=== PATIENT | male | born 1965 | race Caucasian/White ===

== ENCOUNTER 2016-11-10 12:22 | Emergency (ER) ==
[2016-11-10 13:16] LABS: MANUAL DIFF NEEDED? NO
[2016-11-10 13:20] LABS: EOS# 0.06 X1000 (0.0-0.7); EOS% 0.4 % (0.0-10.0); HEMATOCRIT 44.9 % (42.0-52.0); HEMOGLOBIN 15.8 g/dL (14.0-18.0); IMM GRAN# 0.03 X1000 (0.0-0.04); IMM GRAN% 0.2 % (0.0-0.5); LYMPH# 2.55 X1000 (1.2-3.4); LYMPH% 18.7 % (20.5-51.1); MCH 32.7 PG (27-31); MCHC 35.2 g/dL (33-37); MONO# 1.28 X1000 (0.11-0.59); MONO% 9.4 % (1.7-9.3); MPV 10.4 FL (7.4-10.4); NEUT% 71.3 % (42.2-75.2); PLT 231 X1000 (130-400); RBC 4.83 XMIL (4.7-6.1)
[2016-11-10] MEDS ORDERED: TORADOL IV ONE (13:20)
[2016-11-10 13:39] LABS: URINE CULTURE NEEDED? NO; URINE MICRO REVIEW NEEDED? NO; URINE SOURCE CLEAN CATCH
[2016-11-10 13:42] LABS: POTASSIUM 3.7 mmol/L (3.5-5.1); TOTAL BILIRUBIN 0.54 mg/dL (0.20-1.00); TOTAL PROTEIN 6.6 g/dL (6.3-8.3)
[2016-11-10 13:56] LABS: BILIRUBIN URINE NEGATIVE (NEGATIVE); BLOOD URINE TRACE (NEGATIVE); COLOR YELLOW; GLUCOSE URINE NEGATIVE (NEGATIVE); LEUKOCYTES URINE NEGATIVE (NEGATIVE); NITRITE URINE NEGATIVE (NEGATIVE); PH URINE 6.5; PROTEIN URINE TRACE mg/dL (NEGATIVE); SP GRAVITY URINE 1.026; TURBIDITY URINE CLEAR (CLEAR); UROBILINOGEN URINE NORMAL (NORMAL)
[2016-11-10 13:57] LABS: UR EPITHELIAL CELLS <10 /HPF (<10); URINE BACTERIA NEGATIVE /HPF; URINE RBC <10 /HPF (<10); URINE WBC <10 /HPF (<10)
[2016-11-10] MEDS ORDERED: NS 1,000 ML IV ONE (14:02)
--- NOTE | 2016-11-10 14:45 | Diag Imaging Result Document ---
PROCEDURE NAME: RENAL STONE SEARCH - 11/10/2016 CT ABDOMEN AND PELVIS WITHOUT CONTRAST: COMPARISON: None available. FINDINGS: There is a 3.2 mm obstructing stone at the left UVJ with associated mild to moderate left hydroureteronephrosis and left perinephric stranding consistent with acute obstructive uropathy. The urinary bladder is grossly unremarkable. There are a few scattered colonic diverticula but there is no evidence of diverticulitis. The remainder of the solid viscera of the abdomen and pelvis and the remainder of the GI tract is essentially unremarkable. IMPRESSION: 1. A 3.2 mm obstructing stone at the left UVJ with associated moderate left hydroureteronephrosis. 2. Other incidental/nonacute findings detailed above.
--- NOTE | 2016-11-10 15:01 | PROVIDER DOCUMENTATION ---
HPI-Male Problem - General Chief Complaint: Flank Pain Stated Complaint: POSS KIDNEY STONE Time Seen by Provider: 11/10/16 12:28 Source: patient Allergies/Adverse Reactions: Patient Allergies Allergy/AdvReac Type Severity Reaction Status Date / Time No Known Allergies Allergy Verified 11/10/16 13:07 Home Medications: Home Medication List Medication Instructions Recorded Confirmed Last Taken Type Ciprofloxacin HCl [Cipro] 500 mg PO BID #14 tablet 11/10/16 Unknown Rx Hydrocodone/Acetaminophen [Tyler 1 each PO Q4-6H PRN PRN #20 tablet 11/10/16 Unknown Rx 7.5-325 Tablet] Ondansetron [Zofran] 4 mg PO Q6H PRN PRN #14 tablet 11/10/16 Unknown Rx Tamsulosin [Flomax] 0.4 mg PO DAILY #7 capsule 11/10/16 Unknown Rx - History of Present Illness-Male Nature of Presenting Problem: 50 y/o M with history of HTN presents with left lower back pain x 2 days. Pain is intermittent and radiating to the groin. Pain has been worsening since onset and became constant this morning . Associated symptoms include dysuria and frequency. Location of Complaint: reports: left flank Radiation: reports: groin Severity in ED: reports: severe Onset/Duration: reports: 2 days ago Timing: reports: still present, getting worse Context/Activities at Onset: reports: none Urinary Symptoms: reports: dysuria, frequency. denies: hematuria Associated Symptoms: denies: inguinal mass, penile discharge, penile pain/ swelling, pain/swelling in testicle, unable to replace foreskin Associated Symptoms: denies: diarrhea, fever/chills, nausea, vomiting Similar Symptoms Previously?: Yes (kidney stone 12 years ago) Review of Systems - Adult - REVIEW OF SYSTEMS - ADULT Constitutional: reports: no symptoms reported. denies: chills, fever Eyes: reports: no symptoms reported. denies: decreased vision, blurred vision Ears, Nose, Mouth & Throat: reports: no symptoms reported. denies: ear pain, hearing loss Cardiovascular: reports: no symptoms reported. denies: chest pain Respiratory: reports: no symptoms reported. denies: cough, shortness of breath , wheezing Gastrointestinal: reports: no symptoms reported. denies: abdominal pain, nausea , vomiting Genitourinary: reports: see HPI Musculoskeletal: reports: back pain Integumentary: reports: no symptoms reported. denies: itching, rash Neurological: reports: no symptoms reported. denies: dizziness/vertigo, headache/migraines Psychiatric: reports: no symptoms reported Endocrine: reports: no symptoms reported Hematologic/Lymphatic: reports: no symptoms reported Allergic/Immunologic: reports: no symptoms reported All Other Systems: Reviewed and Negative Past History - Adult - PAST MEDICAL HISTORY-ADULT Review of Records: reports: Nursing Assessment Review, Medications Reviewed Physical Exam-General - PHYSICAL EXAM-ADULT Initial Vital Signs Reviewed: Yes - CONSTITUTIONAL General Appearance: appears well, alert, no apparent distress - EYES Eyes: PERRL/EOMI, pink conjunctivae - HEAD, EARS, NOSE, MOUTH & THROAT HENMT: normocephalic/atraumatic, moist mucous membranes - NECK Neck: normal inspection - RESPIRATORY Respiratory: chest non-tender, lungs clear, normal breath sounds, no pleuratic chest pain, no respiratory distress, no accessory muscle use - CARDIOVASCULAR Cardiovascular: normal peripheral pulses, regular rate, rhythm - GASTROINTESTINAL (ABDOMEN) Abdominal Exam: normal bowel sounds, non tender, soft - MUSCULOSKELETAL Back Exam: no CVA tenderness Extremity: normal inspection - SKIN Integumentary: normal color, normal turgor, warm/dry - NEUROLOGIC Neurologic: grossly normal, no motor/sensory deficits - PSYCHIATRIC Psych/Mental Status: normal mood/affect, normal thought content, normal thought process, oriented x 3 Progress - PLAN OF CARE/RESULTS Progress/Plan/Lab Results: Laboratory Tests 11/10/16 11/10/16 11/10/16 13:00 13:00 13:20 WBC 13.67 H RBC 4.83 Hgb 15.8 Hct 44.9 MCV 93.0 MCH 32.7 H MCHC 35.2 RDW Std Deviation 12.0 Plt Count 231 MPV 10.4 Immature Gran % (Auto) 0.2 Neut % (Auto) 71.3 Lymph % (Auto) 18.7 L Greene % (Auto) 9.4 H Eos % (Auto) 0.4 Baso % (Auto) 0.0 Immature Gran # (Auto) 0.03 Neut # (Auto) 9.75 H Lymph # (Auto) 2.55 Greene # (Auto) 1.28 H Eos # (Auto) 0.06 Baso # (Auto) 0.00 Sodium 139 Potassium 3.7 Chloride 102 Carbon Dioxide 24 L Anion Gap 13 BUN 30 H Creatinine 1.6 H Estimated GFR/1.73 m2 46 BUN/Creatinine Ratio 19 Glucose 116 H Calculated Osmolality 285 Calcium 9.0 Total Bilirubin 0.54 AST 21 ALT 13 Alkaline Phosphatase 104 Total Protein 6.6 Albumin 4.0 Globulin 2.6 Albumin/Globulin Ratio 1.5 Urine Source CLEAN CATCH Urine Color YELLOW Urine Turbidity CLEAR Urine pH 6.5 Ur Specific [place] 1.026 Urine Protein TRACE A Ur Glucose (Stick) NEGATIVE Ur Ketones (Stick) NEGATIVE Urine Blood TRACE A Urine Nitrite NEGATIVE Urine Bilirubin NEGATIVE Urobilinogen Dipstick NORMAL Urine Leukocytes NEGATIVE Urine WBC (Auto) <10 Urine RBC (Auto) <10 U Epithel Cells (Auto) <10 Urine Bacteria (Auto) NEGATIVE Orders Category Date Time Status Strain All Urine ORDERED Care 11/10/16 15:08 Active RENAL STONE SEARCH [CT] Stat Exams 11/10/16 13:20 Draft CBC WITH ELECTRONIC DIFF [HEME] Stat Lab 11/10/16 13:00 Completed COMPREHENSIVE METABOLIC PANEL [CHEM] Stat Lab 11/10/16 13:00 Completed URINALYSIS W/POSS RFLX CULT [URINALYSIS] Stat Lab 11/10/16 13:20 Completed 0.9% Sodium Chloride Inj [Ns] 1,000 ml Med 11/10/16 14:02 Discontinued IV 999 mls/hr Ketorolac [Toradol] Med 11/10/16 13:20 Discontinued 30 mg IV NOW ONE Vital Signs Temp Pulse Resp BP Pulse Ox 11/10/16 12:26 98.1 F 73 18 139/83 99 No Known Allergies Allergy (Verified 11/10/16 13:07) Ciprofloxacin HCl [Cipro] 500 mg PO BID #14 tablet 11/10/16 Hydrocodone/Acetaminophen [Tyler 7.5-325 Tablet] 1 each PO Q4-6H PRN PRN #20 tablet 11/10/16 Ondansetron [Zofran] 4 mg PO Q6H PRN PRN #14 tablet 11/10/16 Tamsulosin [Flomax] 0.4 mg PO DAILY #7 capsule 11/10/16 I&O 11/09/16 11/10/16 11/11/16 06:59 06:59 06:59 Output Total 40 Balance -40 Laboratory 11/10/16 11/10/16 11/10/16 13:20 13:00 13:00 WBC 13.67 H RBC 4.83 Hgb 15.8 Hct 44.9 MCV 93.0 MCH 32.7 H MCHC 35.2 RDW Std Deviation 12.0 Plt Count 231 MPV 10.4 Immature Gran % (Auto) 0.2 Neut % (Auto) 71.3 Lymph % (Auto) 18.7 L Greene % (Auto) 9.4 H Eos % (Auto) 0.4 Baso % (Auto) 0.0 Immature Gran # (Auto) 0.03 Neut # (Auto) 9.75 H Lymph # (Auto) 2.55 Greene # (Auto) 1.28 H Eos # (Auto) 0.06 Baso # (Auto) 0.00 Sodium 139 Potassium 3.7 Chloride 102 Carbon Dioxide 24 L Anion Gap 13 BUN 30 H Creatinine 1.6 H Estimated GFR/1.73 m2 46 BUN/Creatinine Ratio 19 Glucose 116 H Calculated Osmolality 285 Calcium 9.0 Total Bilirubin 0.54 AST 21 ALT 13 Alkaline Phosphatase 104 Total Protein 6.6 Albumin 4.0 Globulin 2.6 Albumin/Globulin Ratio 1.5 Urine Source CLEAN CATCH Urine Color YELLOW Urine Turbidity CLEAR Urine pH 6.5 Ur Specific [place] 1.026 Urine Protein TRACE A Ur Glucose (Stick) NEGATIVE Ur Ketones (Stick) NEGATIVE Urine Blood TRACE A Urine Nitrite NEGATIVE Urine Bilirubin NEGATIVE Urobilinogen Dipstick NORMAL Urine Leukocytes NEGATIVE Urine WBC (Auto) <10 Urine RBC (Auto) <10 U Epithel Cells (Auto) <10 Urine Bacteria (Auto) NEGATIVE Vital Signs Temp Pulse Resp BP Pulse Ox 11/10/16 12:26 98.1 F 73 18 139/83 99 No Known Allergies Allergy (Verified 11/10/16 13:07) Ciprofloxacin HCl [Cipro] 500 mg PO BID #14 tablet 11/10/16 Hydrocodone/Acetaminophen [Tyler 7.5-325 Tablet] 1 each PO Q4-6H PRN PRN #20 tablet 11/10/16 Ondansetron [Zofran] 4 mg PO Q6H PRN PRN #14 tablet 11/10/16 Tamsulosin [Flomax] 0.4 mg PO DAILY #7 capsule 11/10/16 I&O 11/09/16 11/10/16 11/11/16 06:59 06:59 06:59 Output Total 40 Balance -40 Laboratory 03/11/10/16 11/10/16 13:20 13:00 13:00 WBC 13.67 H RBC 4.83 Hgb 15.8 Hct 44.9 MCV 93.0 MCH 32.7 H MCHC 35.2 RDW Std Deviation 12.0 Plt Count 231 MPV 10.4 Immature Gran % (Auto) 0.2 Neut % (Auto) 71.3 Lymph % (Auto) 18.7 L Greene % (Auto) 9.4 H Eos % (Auto) 0.4 Baso % (Auto) 0.0 Immature Gran # (Auto) 0.03 Neut # (Auto) 9.75 H Lymph # (Auto) 2.55 Greene # (Auto) 1.28 H Eos # (Auto) 0.06 Baso # (Auto) 0.00 Sodium 139 Potassium 3.7 Chloride 102 Carbon Dioxide 24 L Anion Gap 13 BUN 30 H Creatinine 1.6 H Estimated GFR/1.73 m2 46 BUN/Creatinine Ratio 19 Glucose 116 H Calculated Osmolality 285 Calcium 9.0 Total Bilirubin 0.54 AST 21 ALT 13 Alkaline Phosphatase 104 Total Protein 6.6 Albumin 4.0 Globulin 2.6 Albumin/Globulin Ratio 1.5 Urine Source CLEAN CATCH Urine Color YELLOW Urine Turbidity CLEAR Urine pH 6.5 Ur Specific [place] 1.026 Urine Protein TRACE A Ur Glucose (Stick) NEGATIVE Ur Ketones (Stick) NEGATIVE Urine Blood TRACE A Urine Nitrite NEGATIVE Urine Bilirubin NEGATIVE Urobilinogen Dipstick NORMAL Urine Leukocytes NEGATIVE Urine WBC (Auto) <10 Urine RBC (Auto) <10 U Epithel Cells (Auto) <10 Urine Bacteria (Auto) NEGATIVE - CT/MRI 1 CT Study: Renal Stone CT Results: 3.2mm nonobstructing stone at left UVJ - CONSULTS/PCP/HOSPITALIST Notification #1 *Consult/PCP/Hospitalist*: Dr. Espinoza Time Discussed: 15:16 (discussed labs and CT findings. Recommends d/c home to follow up in office.) Consult Disposition: F/U in office Departure - Departure Time of Disposition Order: 15:01 DIAGNOSIS: Ureteral stone with hydronephrosis, Decreased renal function Disposition: HOME 01 Certified Medical Emergency: Emergent Condition: Good Additional Instructions: ED Follow Up Instructions: You have been treated by a care provider in the Emergency Department. These instructions are being provided to you so you can have an understanding of how to care for yourself upon discharge. Upon discharge from the Emergency Department, you are responsible for making arrangements for follow-up care by a physician of your choice. Take all prescribed medications as directed. Return to the Emergency Department immediately for any new or worsening symptoms. You may call the Physician Referral phone number at [phone] to obtain a list of Physicians who are taking new patients. Prescriptions: Ciprofloxacin HCl [Cipro] 500 mg PO BID #14 tablet Tamsulosin [Flomax] 0.4 mg PO DAILY #7 capsule Hydrocodone/Acetaminophen [Tyler 7.5-325 Tablet] 1 each PO Q4-6H PRN PRN #20 tablet PRN Reason: Pain Ondansetron [Zofran] 4 mg PO Q6H PRN PRN #14 tablet PRN Reason: Nausea Referrals: Peter Borges MD [Primary Care Provider] - Malachi Espinoza MD [STAFF PHYSICIAN] - Instructions: Acute Kidney Injury, Kidney Stones, [id number] Attestation - Physician/ JORGE Attestation Patient care was provided by Advanced Practice Provider:: Yes Advanced Practice Provider:: Jodee Billingsley Advanced Practice Provider documentation review:: The Mid-level provider documentation, treatment plan and medical decision making was reviewed by the physician who agrees with all treatment and medical decision making by the MLP.
[2016-11-10 15:32] VITALS: BP 148/73
== END 2016-11-10 15:32 | disposition home or self-care (01) ==
LOC: ED 12:22
DX: N13.2 Hydronephrosis with renal and ureteral calculous obstruction (principal); N28.9 Disorder of kidney and ureter, unspecified; M54.5 Low back pain; R10.9 Unspecified abdominal pain; R30.0 Dysuria; R35.0 Frequency of micturition
CPT/HCPCS: 74176; 80053; 81001; 85025; J1885; J7030